=== PATIENT | female | born 1975 | race Caucasian/White ===

== ENCOUNTER 2025-01-02 15:19 | Emergency (ER) | payer SELFPAY ==
[~2025-01-02] VITALS: Ht 152.4 cm; Wt 92.3 kg
[2025-01-02] MEDS ORDERED: OZEMPIC1 MG/0.71 (15:34)
[2025-01-02] MEDS ORDERED: JARDIANCE10 MG (15:34)
[2025-01-02] MEDS ORDERED: METFORMIN HCL500 M2 PO (15:34)
[2025-01-02] MEDS: HYDROCODONE/APAP 5MG-325MG TAB PO ONE (15:47)
[2025-01-02] MEDS: KETOROLAC TROMETHAMINE 60 MG/2 ML VIAL IM ONE (15:48)
[2025-01-02] MEDS ORDERED: DEXAMETHASONE SOD PHOS INJ 4 MG/ML SDV ONE (16:24)
[2025-01-02] MEDS: DEXAMETHASONE SOD PHOS 10 MG/1 ML VIAL IV ONE (16:26)
[2025-01-02] MEDS ORDERED: ONDANSETRON HCL 4 MG ORAL DISINTEGRATING TAB ONE (17:06)
[2025-01-02] MEDS: Morphine 4mg INJECTION 4 MG/ML INJ IV ONE (17:11)
[2025-01-02] MEDS: ONDANSETRON HCL 4 MG ORAL DISINTEGRATING TAB PO ONE (17:14)
[2025-01-02 17:36] VITALS: PULSE 94; RESP 18; TEMP 97.3; O2SAT 96
== END 2025-01-02 17:41 | disposition home or self-care (01) ==
LOC: FSED 15:25
DX: M54.42 Lumbago with sciatica, left side (principal); E11.9 Type 2 diabetes mellitus without complications; G89.29 Other chronic pain
CPT/HCPCS: 81003; 96372; 99283; J1100; J1885; J2270; Q0162

== ENCOUNTER 2025-01-08 19:55 | Emergency (ER) | payer SELFPAY ==
[~2025-01-08] VITALS: Ht 152.4 cm; Wt 86.2 kg
[~2025-01-08 19:55] MED LIST: JARDIANCE10 MG; METFORMIN HCL500 M2 PO; OZEMPIC1 MG/0.71
[2025-01-08 20:00] VITALS: PULSE 90; RESP 20; TEMP 98.3
[2025-01-08] MEDS: ONDANSETRON HCL INJ 2MG/ML 2ML 2 MG/ML VIAL IV STA (20:45)
[2025-01-08] MEDS: Morphine 4mg INJECTION 4 MG/ML INJ IV ONE (20:46)
[2025-01-08] MEDS: KETOROLAC TROMETHAMINE 30 MG/ML VIAL IV STA (20:46)
[2025-01-08 21:26] VITALS: BP 141/81; PULSE 90; RESP 20; TEMP 98.3; O2SAT 96
[2025-01-08] MEDS ORDERED: Morphine 4mg INJECTION 4 MG/ML INJ IV ONE (21:30)
== END 2025-01-08 21:31 | disposition home or self-care (01) ==
LOC: FSED 20:02
DX: M54.40 Lumbago with sciatica, unspecified side (principal); G58.8 Other specified mononeuropathies; E11.9 Type 2 diabetes mellitus without complications
CPT/HCPCS: 99283; J1885; J2270; J2405

== ENCOUNTER 2025-01-08 21:42 | Emergency (ER) | payer SELFPAY ==
[~2025-01-08] VITALS: Ht 152.4 cm; Wt 86.2 kg
[2025-01-08 22:35] VITALS: PULSE 97; RESP 17; TEMP 98.4; O2SAT 95
[2025-01-08] MEDS ORDERED: KETOROLAC TROMETHAMINE 30 MG/ML VIAL IV STA (22:45)
[2025-01-08] MEDS: KETOROLAC TROMETHAMINE 30 MG/ML VIAL IM STA (23:12)
[2025-01-08] MEDS: METHOCARBAMOL 750 MG TAB PO ONE (23:12)
== END 2025-01-08 23:02 | disposition left against medical advice (07) ==
LOC: MERGE 21:55 → ER 21:55
DX: M54.50 Low back pain, unspecified (principal); G89.29 Other chronic pain
CPT/HCPCS: J1885

== ENCOUNTER 2025-03-17 21:48 | Emergency (ER) | payer SELFPAY ==
[~2025-03-17] VITALS: Ht 152.4 cm; Wt 93.9 kg
[2025-03-17 22:03] VITALS: PULSE 91; RESP 20; TEMP 97.1; O2SAT 95
== END 2025-03-17 22:45 | disposition home or self-care (01) ==
LOC: FSED 21:52
DX: M54.50 Low back pain, unspecified (principal); G89.29 Other chronic pain; Z76.5 Malingerer [conscious simulation]; E11.9 Type 2 diabetes mellitus without complications
CPT/HCPCS: 99282